=== PATIENT | female | born 1980 | race Caucasian/White ===

== ENCOUNTER 2016-09-23 08:49 | Emergency (ER) | payer OTHER ==
[~2016-09-23] VITALS: Ht 170.2 cm; Wt 87.1 kg
[2016-09-23] MEDS ORDERED: LOPRESSOR100 M1 PO (08:57)
[2016-09-23] MEDS ORDERED: NORCO 5-325 TA1 EACH PO ×2 (08:57→09:49)
[2016-09-23] MEDS ORDERED: PRILOSEC10 MG PO (08:57)
[2016-09-23 10:11] VITALS: BP 146/92
== END 2016-09-23 10:12 | disposition home or self-care (01) ==
LOC: ER 08:49
DX: S16.1XXA Strain of muscle, fascia and tendon at neck level, initial encounter (principal); M54.9 Dorsalgia, unspecified; I10 Essential (primary) hypertension; F17.210 Nicotine dependence, cigarettes, uncomplicated; V49.40XA Driver injured in collision with unspecified motor vehicles in traffic accident, initial encounter; Y93.89 Activity, other specified; Y92.9 Unspecified place or not applicable; Y99.9 Unspecified external cause status